=== PATIENT | male | born 1955 | race Caucasian/White ===

== ENCOUNTER 2024-10-13 10:28 | Emergency (ER) | payer OTHER ==
[~2024-10-13] VITALS: Ht 175.2 cm; Wt 104.3 kg
[~2024-10-13 10:28] MED LIST: ANTIBIOTIC O500 U/GM TP; ANTIVERT25 MG PO; CEPHALEXIN500 M1 PO; MECLIZINE; Motrin,Rufen800 MG PO
[2024-10-13] MEDS ORDERED: IOHEXOL 300 MG/ML 100 ML VIAL IV ONE (13:20)
[2024-10-13 13:34] LABS: BASO # 0.1 10*3/uL (0.0-0.1); BASO % 0.6 % (0.0-1.0); EOS # 0.1 10*3/uL (0.0-0.4); EOS % 0.9 % (1.0-4.0); HEMATOCRIT 43.1 % (42.0-52.0); MEAN CORPUSCULAR HGB 26.1 pg (27.0-31.0); MEAN CORPUSCULAR HGB CONC 33.9 g/dl (33.0-37.0); MEAN PLATELET VOLUME 9.2 fl (9.6-12.3); MONO # 0.9 10*3/uL (0.1-1.0); MONO % 8.2 % (3.0-9.0); NEUT # 8.9 10*3/uL (2.3-7.9); PLATELET COUNT AUTOMATED 407 10*3/uL (130-400); RED CELL DISTRI WIDTH 17.3 % (0-14.5); WHITE BLOOD COUNT 11.5 10*3/uL (4.8-10.8)
[2024-10-13] MEDS ORDERED: IOHEXOL 300 MG/ML 100 ML VIAL ONE (13:40)
[2024-10-13 13:49] LABS: ALKALINE PHOSPHATASE 470 U/L (46-116); BUN 13 mg/dl (9-23); CHLORIDE 101 mmol/L (98-107); POTASSIUM 3.4 mmol/L (3.4-5.1); SGPT/ALT 395 U/L (5-49); TOTAL PROTEIN 7.7 gm/dL (6.0-8.0)
[2024-10-13] MEDS ORDERED: CIPRO500 MG PO (14:13)
== END 2024-10-13 14:01 | disposition home or self-care (01) ==
LOC: ED 10:28
PROVIDERS: Emergency Medicine
DX: R17 Unspecified jaundice (principal); R82.998 Other abnormal findings in urine; Z88.0 Allergy status to penicillin